=== PATIENT | female | born 1955 | race African-American/Black ===

== ENCOUNTER → 2017-12-30 | Outpatient (CLI) | payer OTHER ==
[2017-02-13 12:54] VITALS: BP 112/64
[~2017-12-30] MED LIST: GABA600T2 PO; LEVO50TA PO; OMEP20TA8 PO
--- NOTE | 2017-12-30 07:45 | RAD ---
ABDOMEN COMPLETE History: Nausea Comparison: None. Findings: Multiple sonographic images of the abdomen are submitted. There is no abnormality of the visualized pancreas. There is segmental visualization of the inferior vena cava. Abdominal aortic caliber is within normal limits up to 1.7 cm. Hepatic echotexture is within normal limits. No focal hepatic lesion is demonstrated. Right lobe of liver measured 14.6 cm longitudinal. There has been cholecystectomy. Common bile duct is within normal limits at 0.3 cm. Right kidney measured 10.8 x 3.6 x 3.6 cm, no hydronephrosis. Spleen measured 9.5 cm. Left kidney measured 10.3 x 4.7 x 5 cm, no hydronephrosis. Impression: 1. No significant abnormality is demonstrated. Electronically signed by: Zeke Doyle MD (12/30/2017 7:41 AM) [id number]
--- NOTE | 2017-12-30 16:41 | RAD ---
Examination: GASTRIC EMPTYING STUDY History: 2.2mci 99mTc Sulfur colloid in solid meal - PM nausea post meal + GERD
x6 months Comparison/Correlation: None Findings: A 2.2 mCi technetium 99m upper colloid meal was provided. Gastric emptying imaging was performed in anterior and posterior projections. Gastric retention at 1 hour is 67 percent, at 2 hours is 49 percent, at 3 hours is 21 percent, and at 4 hours is 0 percent. Radiotracer is noted to transit normally through the small bowel. Impression: Normal gastric emptying examination. Electronically signed by: Gerardo Springer MD (12/30/2017 4:38 PM) [facility]
== END | disposition home or self-care (01) ==
LOC: US 06:40
PROVIDERS: ATTEND Internal Medicine Gastroenterology
DX: R11.0 Nausea (principal); K21.0 Gastro-esophageal reflux disease with esophagitis
CPT/HCPCS: 76700; 78264; A9541

== ENCOUNTER → 2018-01-15 | Outpatient (CLI) | payer OTHER ==
[2017-02-13 12:54] VITALS: BP 112/64
[~2018-01-15] MED LIST changes: +REGADENOSON 0.4 MG/5 ML DISP.SYRIN. IV ONE
--- NOTE | 2018-01-15 11:53 | RAD ---
MR#: [id number] Date of Study: 01/15/2018 Ordering Physician: ANGELA GOOD, Referring Physician: ANNIKA CHI Tech: TEE Hernandes, ARRT (R) (N) APPROVED REPORT Test Type: Exercise Stress Nurse/Tech: Argelia Hernandez R.N. Test Indications: nausea Medications: See Electronic Medical Record Medical History: See Electronic Medical Record Resting ECG: SR Resting Heart Rate: 72 bpm Resting Blood Pressure: 112/58mmHg Pretest Chest Pain: No chest pain Nurse/Tech Notes S1S2, lungs CTA Consent: The procedure was explained to the patient in lay terms. Informed consent was witnessed. Donaldo eout was entered into [employer]. History and Stress Test performed by RT Remy (Suzie) (N) Stress Symptoms No chest pain or symptoms. POST EXERCISE Reason for Termination: Reached target heart rate Target HR: Yes Max HR: 166 bpm 124% of Maximum Predicted HR: 133 bpm Exercise duration: 6:30 min:sec, 3 Stage Exercise capacity: 10METs Max Blood Pressure: 152/72mmHg Blood Pressure response to exercise: Normal blood pressure response during stress. Heart Rate response to exercise: wnl Chest Pain: No. Arrhythmia: No. ST Change: No. INTERPRETATION Stress EKG Conclusion: Baseline EKG showed sinus rhythm. No ischemic changes at peak stress. No arr hythmias. Imaging Protocol IMAGE PROTOCOL: Rest Tc-99m/stress Tc-99m 1 day Rest: Stress: Viability: Radiopharm.Tc99m [id number] Sestamibi Dose11.8mCi 33.5mCi Img Date 01/15/2018 01/15/2018 Inj-Img [id number]. 60min. Rest Admin Site:IV - Right AntecubitalAdministrator:RT Remy (Suzie)(N) Stress Admin Site: IV - Right AntecubitalAdministrator: RT Remy (Suzie)(N) STRESS DATA End Diast. Vol.33.0mlLVEDV index BSA20.0ml End Syst. Vol.3.0mlLVESV index BSA2.0ml Myocardial Mass75.0gEject. Bfsvnuqw35.0% Stress Scores Regional WT1.00Summed WT2.00 Regional WM0.00Summed WM2.00 Study quality was good. Left Ventricular size was Normal at Rest and Stress. Lung uptake was . Left Ventricular ejection fraction is >80%. The rest and stress images show normal perfusion, normal contraction and thickening. LV Perf. Quant 17 Seg. SSS0.00 17 Seg. SRS0.00 17 Seg. SDS0.00 Stress Defect Extent (% LAD)0.00Rest Defect Extent (% LAD)0.00Rev. Defect Extent (% LAD)0.00 Stress Defect Extent (% LCX) 0.00Rest Defect Extent (% LCX)0.00Rev. Defect Extent (% LCX)0.00 Stress Defect Extent (% RCA)0.00Rest Defect Extent (% RCA)0.00Rev. Defect Extent (% RCA)0.00 Stress Defect Extent (% CHIP)0.00Rest Defect Extent (% CHIP)0.00Rev. Defect Extent (% CHIP)0.00 Conclusion 1. Treadmill exercise cardioisotope stress test did not show any evidence of ischemia or infarct. 2. Normal left ventricular systolic function with ejection fraction calculated at >80%. 3. Patient had good activity tolerance. Low risk for cardiac events. Signed by : Randall Schwartz Electronically Approved : 01/15/2018 11:51:48
== END | disposition home or self-care (01) ==
LOC: NM 07:19
PROVIDERS: ATTEND Internal Medicine Cardiovascular Disease
DX: R11.0 Nausea (principal)
CPT/HCPCS: 78452; 93017; 96374; 96376; A9500